=== PATIENT | male | born 1995 | race African-American/Black ===

== ENCOUNTER 2017-03-25 10:24 | Emergency (ER) | payer OTHER, MEDICAID ==
[~2017-03-25] VITALS: Ht 154.9 cm; Wt 55.0 kg
[2017-03-25] MEDS ORDERED: ALBUTEROL (0.5%) 2.5MG/0.5ML NEB HHN ONE ×2 (10:45→14:45)
[2017-03-25 10:51] LABS: BASOPHILS % 0.4 % (0.0-2.0); EOSINOPHILS % 0.9 % (0.0-5.0); HEMATOCRIT. 45.9 % (42.0-52.0); HEMOGLOBIN. 15.8 g/dL (14.0-18.0); LYMPHOCYTES % 13.5 % (20.0-50.0); MEAN CORPUSCULAR HEMOGLOBIN 31.7 pg (28.0-32.0); MEAN CORPUSCULAR VOLUME 92.2 fL (80.0-94.0); MEAN PLATELET VOLUME 8.8 fl (7.4-10.4); MONOCYTES % 8.2 % (2.0-8.0); PLATELET 206 x1000/uL (130-400); RED BLOOD CELL COUNT 4.98 mill/uL (4.7-6.1); RED CELL DISTRIBUTION WIDTH 12.1 % (11.6-14.6)
[2017-03-25 10:57] LABS: CHLORIDE 104 mEq/L (98-107)
[2017-03-25 11:05] LABS: CARBON DIOXIDE 24 mEq/L (21-32)
[2017-03-25] MEDS ORDERED: POTASSIUM CHLORIDE 20MEQ TABLET SR PO ONE (15:45)
[2017-03-25] MEDS ORDERED: THROAT LOZENGES-BENZOCAINE/MENTH/CETYLPYRD CL LOZENGES MM PRN (15:45)
[2017-03-25] MEDS ORDERED: MULTIVITAMINS,THER W-MINERALS TABLET PO SCH (15:45)
[2017-03-25] MEDS ORDERED: LORAZEPAM 1MG TABLET PO PRN (15:45)
[2017-03-25] MEDS ORDERED: THIAMINE HCL 100MG TABLET PO SCH (15:45)
[2017-03-25] MEDS ORDERED: IPRATROPIUM/ALBUTEROL 0.5-3(2.5)MG/3ML NEB HHN PRN (15:45)
[2017-03-25] MEDS ORDERED: ZOLPIDEM TARTRATE 5MG TABLET PO PRN (16:15)
[2017-03-25] MEDS ORDERED: GUAIFENESIN 200MG/10ML SUGAR FREE UDC PO PRN (16:15)
[2017-03-25] MEDS ORDERED: CLONIDINE 0.1MG TABLET PO PRN (16:15)
[2017-03-25] MEDS ORDERED: DOCUSATE SODIUM 100MG CAPSULE PO PRN (16:15)
[2017-03-25] MEDS ORDERED: TRAMADOL 50MG TABLET PO PRN (16:15)
[2017-03-25] MEDS ORDERED: LORAZEPAM 0.5MG TABLET PO PRN (16:15)
[2017-03-25] MEDS ORDERED: KETOROLAC 15MG/ML VIAL IV PRN (16:15)
[2017-03-25] MEDS ORDERED: ACETAMINOPHEN 325MG TABLET PO PRN (16:15)
[2017-03-25] MEDS ORDERED: NITROGLYCERIN 0.4MG TABLET SL SL PRN (16:15)
[2017-03-25] MEDS ORDERED: MAGNESIUM/ALUMINUM HYDROXIDE/SIMETHICONE 30ML UDC PO PRN (16:15)
[2017-03-25] MEDS ORDERED: DIPHENHYDRAMINE 50MG/ML VIAL IV PRN (16:15)
[2017-03-25] MEDS ORDERED: NA PHOS,M-B/NA PHOS,DI-BA ENEMA 118ML PR PRN (16:15)
[2017-03-25] MEDS ORDERED: ONDANSETRON HCL 4MG/2ML VIAL IV PRN (16:15)
[2017-03-25 16:30] VITALS: BP 139/69
[2017-03-25] MEDS ORDERED: IPRATROPIUM/ALBUTEROL 0.5-3(2.5)MG/3ML NEB HHN SCH (18:00)
[2017-03-25] MEDS ORDERED: FAMOTIDINE 20MG/2ML VIAL IV SCH (21:00)
[2017-03-26] MEDS ORDERED: NICOTINE 7MG PATCH TD SCH (09:00)
== END 2017-03-25 16:45 | disposition left against medical advice (07) ==
LOC: ER 10:26 → CANRESERV 15:33 → ENRESERV 15:33 → EDBEDREQTM 16:29 → EDBEDREQ 16:29 → EDBEDREQSVC 16:29 → ER 16:45 → EDBEDREQ 17:57 → EDBEDREQTM 17:57 → EDBEDREQSVC 17:57 → CANBEDREQ 19:51
DX: J93.9 Pneumothorax, unspecified (principal); J98.2 Interstitial emphysema; R06.03 Acute respiratory distress; F12.90 Cannabis use, unspecified, uncomplicated; R79.89 Other specified abnormal findings of blood chemistry
CPT/HCPCS: 36415; 71010; 71250; 80053; 83036; 85025; 93005; 94640; 99291; J7611